=== PATIENT | female | born 1995 ===

== ENCOUNTER 2020-03-14 05:05 | Emergency (ER) | payer OTHER ==
[~2020-03-14] VITALS: Ht 165.1 cm; Wt 54.4 kg
== END 2020-03-14 05:48 | disposition home or self-care (01) ==
LOC: ER 05:05
DX: T63.441A Toxic effect of venom of bees, accidental (unintentional), initial encounter (principal); R11.2 Nausea with vomiting, unspecified; R06.02 Shortness of breath; R22.31 Localized swelling, mass and lump, right upper limb; Z91.013 Allergy to seafood
CPT/HCPCS: 99282; J1100; Q0163

== ENCOUNTER → 2023-10-10 | Outpatient (CLI) | payer OTHER ==
[2023-10-18 00:29] LABS: HPV HIGH RISK BY TMA Detected; HPV SOURCE Cervical
== END ==
LOC: LAB 16:30 → LAB SHORT 16:30
PROVIDERS: Registered Nurse
DX: Z01.419 Encounter for gynecological examination (general) (routine) without abnormal findings (principal)
CPT/HCPCS: 87624; G0123